=== PATIENT | male | born 1980 ===

== ENCOUNTER 2024-04-23 12:16 | Inpatient (IN) | payer BC, MEDICAID, OTHER ==
[2024-04-23] MEDS ORDERED: ACETAMINOPHEN TAB 325 MG TAB PO PRN (23:57)
[2024-04-23] MEDS ORDERED: MAG HYDROX/AL HYDROX/SIMETH 355 ML BOTTLE PO PRN (23:57)
[2024-04-23] MEDS ORDERED: haloperidoL 5 MG TAB PO PRN (23:57)
[2024-04-23] MEDS ORDERED: LORazepam 1 MG TAB PO PRN (23:57)
[2024-04-23] MEDS ORDERED: HALOPERIDOL LACTATE 5 MG/ML 1 ML VIAL IM PRN (23:57)
[2024-04-23] MEDS ORDERED: IBUPROFEN 600 MG TAB PO PRN (23:57)
[2024-04-23] MEDS ORDERED: traZODone HCL 50 MG TAB PO PRN (23:57)
[2024-04-23] MEDS ORDERED: MAGNESIUM HYDROXIDE 2,400 MG/30 ML CUP PO PRN (23:57)
[2024-04-23] MEDS ORDERED: OLANZapine 10 MG VIAL IM PRN (23:57)
[2024-04-24] MEDS: ASPIRIN 81 MG PO SCH (08:12)
[2024-04-24] MEDS: NICOTINE 14MG/24HR PATCH TRANSDERM SCH (08:14)
[2024-04-24] MEDS: METOPROLOL SUCCINATE (ER) 25 MG TAB.ER.24H PO SCH (08:14)
[2024-04-24] MEDS: ATORVASTATIN 80 MG TAB PO SCH (08:14)
[2024-04-24] MEDS: CLOPIDOGREL 75 MG TAB PO SCH (08:14)
--- NOTE | 2024-04-24 12:14 | P.HP ---
Psychiatric H&P - . H&P Date: 04/24/24 History & Physical: Allergies Allergy/AdvReac Type Severity Reaction Status Date / Time No Known Allergies Allergy Verified 04/23/24 23:54 Vital Signs Temp 97.6 F 04/24/24 00:23 Pulse 71 04/24/24 00:23 Resp 16 04/24/24 00:23 BP 132/87 04/24/24 00:23 Pulse Ox 98 04/24/24 00:23 FiO2 Intake & Output 04/23/24 04/24/24 04/24/24 18:59 06:59 18:59 Weight 96.162 kg 04/24/24 12:04 Mr. 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, 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 Behavior: Patient is calmly seated without any agitated behavior. Speech: Patient's speech is fluent and pressured. Mood/Affect: Mood is i euphoric with expansiveness Suicidality/Homicidality: Patient denies having any suicidal or homicidal ideation intent or plan. Perceptions: Patient denies any visual hallucinations and denies any auditory hallucinations Though content/process: There is evidence of delusional thought content and thought processes Memory and concentration: AOX3, grossly intact for the purposes of this session Judgment and insight: Impaired and impaired Assessment Bipolar disorder Interpersonal family issues and conflicts Plan: Patient is admitted under involuntary status to MHU for stabilization of psychiatric symptoms and safety. -Medications : Patient is in denial and refuses any medication intervention -Ativan and Haldol PRN for agitation/aggression -Internal Medicine consult to perform medical evaluation and physical. -SW on board for discharge planning. Encourage patient to participate in groups to work on coping skills. patient's case will have to first go to the court before any medications could be initiated except for the as needed medications Encouraged the patient to participate on the johnson activities and continue supportive care Derrick Dorsey MD Active Medications Generic Name Dose Route Start Last Admin Trade Name Freq PRN Reason Stop Dose Admin Acetaminophen 650 mg 04/23/24 23:57 Acetaminophen Tab 325 Mg Tab PO Q4HR PRN Mild Pain (Scale 1 to 3) Al Hydroxide/Mg Hydroxide 30 ml 04/23/24 23:57 Mag Hydrox/Al Hydrox/Simeth 355 Ml Bottle PO Q4HR PRN GI Upset Aspirin 81 mg 04/24/24 09:00 04/24/24 08:12 Aspirin 81 Mg PO 81 mg DAILY ARIELLA Administration Atorvastatin Calcium 80 mg 04/24/24 09:00 04/24/24 08:14 Atorvastatin 80 Mg Tab PO 80 mg DAILY ARIELLA Administration Clopidogrel Bisulfate 75 mg 04/24/24 09:00 04/24/24 08:14 Clopidogrel 75 Mg Tab PO 75 mg DAILY ARIELLA Administration Haloperidol 5 mg 04/23/24 23:57 Haloperidol 5 Mg Tab PO Q6HR PRN Agitation Haloperidol Lactate 5 mg 04/23/24 23:57 Haloperidol Lactate 5 Mg/Ml 1 Ml Vial IM Q6HR PRN Severe Agitation Ibuprofen 600 mg 04/23/24 23:57 Ibuprofen 600 Mg Tab PO Q6HR PRN Moderate Pain (Scale 4 to 6) Lisinopril 2.5 mg 04/24/24 09:00 04/24/24 08:14 Lisinopril 2.5 Mg Tab PO 2.5 mg DAILY ARIELLA Administration Lorazepam 1 mg 04/23/24 23:57 Lorazepam 1 Mg Tab PO Q6HR PRN Anxiety Magnesium Hydroxide 2,400 mg 04/23/24 23:57 Magnesium Hydroxide 2,400 Mg/30 Ml Cup PO DAILY PRN Constipation Metoprolol Succinate 25 mg 04/24/24 09:00 04/24/24 08:14 Metoprolol Succinate (Er) 25 Mg Tab.Er.24h PO 25 mg DAILY ARIELLA Administration Trazodone HCl 50 mg 04/23/24 23:57 Trazodone Hcl 50 Mg Tab PO HS PRN Insomnia
--- NOTE | 2024-04-25 02:39 | P.CONS ---
History of Present Illness - Reason for Consult Consult date: 04/25/24 - History of Present Illness The patient is a 44-year-old male with an unknown PMH who was sent in from [facility] where the patient had been admitted for strange behavior. The patient could not give much information and why he was brought to the emergency room. He denied any physical complaints at the time of interview. He does report recreational marijuana use. Denied experiencing chest discomfort, shortness of breath, fever, chills, cough, nausea, vomiting, abdominal pain, diarrhea. Review of systems: Pertinent positives and negatives as discussed in HPI, a complete review of systems was performed and all other systems are negative. Physical examination: General: non toxic, no distress, appears at stated age, obese Derm: no unusual rashes/lesions, no unusual ecchymoses, warm, dry Head: atraumatic, normocephalic, symmetric Eyes: EOMI, no lid lag, anicteric sclera ENT: Nose and ears atraumatic, no thrush, no pharyngeal erythema Neck: trachea midline, supple Mouth: no lip lesion, mucus membranes moist Cardiovascular: S1S2 reg, no murmur, no edema Lungs: CTA bilateral, no rhonchi, no rales , no accessory muscle use Abdominal: soft, nontender to palpation, no guarding Ext: no gross muscle atrophy, no contractures, Neuro: No gross focal neuro deficits noted Psych: Alert, oriented, appropriate affect Assessment: Marijuana abuse Psychosis Plan: Advised on the importance of cessation of marijuana use Defer management of psychosis to primary psychiatry service Thank you for allowing us to participate in the care of this patient. We will follow peripherally. Do not hesitate to contact us with questions. Someone can be reached from the [facility] hospitalist group at all hours of the day at [phone]. Past Medical History Additional Past Medical History / Comment(s): Heart stent History of Any Multi-Drug Resistant Organisms: None Reported Past Surgical History: Heart Catheterization With Stent Past Anesthesia/Blood Transfusion Reactions: Unable to Obtain Date of Last Stent Placement:: Unknown Past Psychological History: Schizophrenia Smoking Status: Former smoker Past Alcohol Use History: Occasional Past Drug Use History: Marijuana Medications and Allergies Allergies Allergy/AdvReac Type Severity Reaction Status Date / Time No Known Allergies Allergy Verified 04/23/24 23:54
--- NOTE | 2024-04-25 08:34 | P.PN ---
Subjective Progress Note Date: 04/25/24 Principal diagnosis: Assessment Bipolar disorder Interpersonal family issues and conflicts Patient Name: Marquis Mann Sr Date of : 84 Patient Status: Inpatient Attending Provider: Rihc Singletary Date: 04/25/24 Initialization Date: 04/24/24 12:04 Subjective data: The patient was seen chart was reviewed and case discussed with the nursing staff Patient was near the phone in the hallway and agreed to talk to this magnetic tape typewriter operator Patient again started to rambebeto about issues where he reports that his ex- was in [place] and that she was trying to get him in trouble He then reports that he only came to the hospital to get some x-rays and MRI done and that he was searching for his son He states that the doctors would not listen to his issues and problems and put him in the hospital He states that he does not have any barron in the ambulance officer doing anything either Patient remains projective argumentative Patient's insight into his problem remains poor Mental Status Exam: General Appearance: Patient appears to be stated age is alert, directable, and cooperative. Behavior: Patient is calmly seated without any agitated behavior. Speech: Patient's speech is fluent and pressured. Mood/Affect: Mood is i euphoric with expansiveness Suicidality/Homicidality: Patient denies having any suicidal or homicidal ideation intent or plan. Perceptions: Patient denies any visual hallucinations and denies any auditory hallucinations Though content/process: There is evidence of delusional thought content and thought processes Memory and concentration: AOX3, grossly intact for the purposes of this session Judgment and insight: Impaired and impaired Assessment Bipolar disorder Interpersonal family issues and conflicts Plan: Patient is admitted under involuntary status to MHU for stabilization of psych iatric symptoms and safety. -Medications : Patient is in denial and refuses any medication intervention -Ativan and Haldol PRN for agitation/aggression -Internal Medicine consult to perform medical evaluation and physical. -SW on board for discharge planning. Encourage patient to participate in groups to work on coping skills. patient's case will have to first go to the court before any medications could be initiated except for the as needed medications Encouraged the patient to participate on the johnson activities and continue supportive care Derrick Dorsey MD Active Medications Generic Name Dose Route Start Last Admin Trade Name Freq PRN Reason Stop Dose Admin Acetaminophen 650 mg 04/23/24 23:57 Acetaminophen Tab 325 Mg Tab PO Q4HR PRN Mild Pain (Scale 1 to 3) Al Hydroxide/Mg Hydroxide 30 ml 04/23/24 23:57 Mag Hydrox/Al Hydrox/Simeth 355 Ml Bottle PO Q4HR PRN GI Upset Aspirin 81 mg 04/24/24 09:00 04/25/24 08:06 Aspirin 81 Mg PO 81 mg DAILY ARIELLA Administration Atorvastatin Calcium 80 mg 04/24/24 09:00 04/25/24 08:06 Atorvastatin 80 Mg Tab PO 80 mg DAILY ARIELLA Administration Clopidogrel Bisulfate 75 mg 04/24/24 09:00 04/25/24 08:06 Clopidogrel 75 Mg Tab PO 75 mg DAILY ARIELLA Administration Haloperidol 5 mg 04/23/24 23:57 Haloperidol 5 Mg Tab PO Q6HR PRN Agitation Haloperidol Lactate 5 mg 04/23/24 23:57 Haloperidol Lactate 5 Mg/Ml 1 Ml Vial IM Q6HR PRN Severe Agitation Ibuprofen 600 mg 04/23/24 23:57 Ibuprofen 600 Mg Tab PO Q6HR PRN Moderate Pain (Scale 4 to 6) Lisinopril 2.5 mg 04/24/24 09:00 04/25/24 08:06 Lisinopril 2.5 Mg Tab PO 2.5 mg DAILY ARIELLA Administration Lorazepam 1 mg 04/23/24 23:57 Lorazepam 1 Mg Tab PO Q6HR PRN Anxiety Magnesium Hydroxide 2,400 mg 04/23/24 23:57 Magnesium Hydroxide 2,400 Mg/30 Ml Cup PO DAILY PRN Constipation Metoprolol Succinate 25 mg 04/24/24 09:00 04/25/24 08:06 Metoprolol Succinate (Er) 25 Mg Tab.Er.24h PO 25 mg DAILY ARIELLA Administration Trazodone HCl 50 mg 04/23/24 23:57 Trazodone Hcl 50 Mg Tab PO HS PRN Insomnia Objective - Vital Signs Vital signs: Vital Signs Temp 96.6 F L 04/25/24 08:08 Pulse 76 04/25/24 08:08 Resp 16 04/25/24 08:08 BP 115/80 04/25/24 08:08 Pulse Ox 98 04/24/24 00:23 FiO2
--- NOTE | 2024-04-26 11:39 | P.PN ---
Progress Note - Text Progress Note Date: 04/26/24 Interval History: Patient was seen in his room, and was directable and agreeable to speak with karan spear at the bedside. At this time, patient states that he is frustrated with this admission. Goes into a flight of ideas about how his kids have it out for him, and have had his admitted two times this week. endorsing paranoia, loose associations. Patient states the first admission, he was immediately discharged. He speaks about how his children and ex are ganging up on him, and petitioning him, just to mess with him. He states that he is sleeping well, and that his appetite is good. At this time patient denies any suicidal or homicidal ideations, intent or plan. Patient denies any auditory, visual hallucinations and denies any paranoia or delusions. Patient states he does not need psych medications. He has been compliant with his heart medications. Mental Status Exam: General Appearance: Patient appears to be have longer hair, stated age is alert, directable, and cooperative. Behavior: Patient is calmly seated without any agitated behavior. Demanding and paranoid. Speech: Patient's speech is fluent and nonpressured. flight of ideas Mood/Affect: Mood is frustrated, affect is congruent and visibly upset. Suicidality/Homicidality: Patient denies having any suicidal or homicidal ideation intent or plan Perceptions: Patient denies any visual hallucinations and denies any auditory hallucinations Though content/process: flight of ideas, paranoid, disorganized. Memory and concentration: AOX3, grossly intact for the purposes of this session Judgment and insight: poor/impulsive. Assessment psychosis unspecified Interpersonal family issues and conflicts cannabis use disorder Plan: -Patient continues to meet criteria for inpatient psychiatric admission for symptom stabilization and safety. Patient has not signed adult voluntary form or medication consent and was placed in patient's chart. -Medications: add Risperdal 0.5mg bid for psychosis. -When necessary Ativan and Haldol for agitation/aggression. -NRT - non smoker -SW on board for discharge planning. Encouraged the patient to participate in milieu. Currently awaiting deferral with tax associate attorney and court date.
[2024-04-26] MEDS: risperiDONE 0.5 MG TAB PO SCH (14:23)
--- NOTE | 2024-04-27 12:14 | P.PN ---
Progress Note - Text Progress Note Date: 04/27/24 Interval History: Patient was seen in group, and was directable and agreeable to speak with senior mortgage underwriter in the hallway. Patient states he is doing better today, as he was able to make some phone calls to get outside business taken care of. He continues to state that he does not think he needs medication or treatment, however, he did defer with his oracle hyperion consultant, and has agreed to take the medications. Front Desk Team Member went over the medications that he will be on, and explained how they worked, patient agreeable . He does still ramble about his children and ex "having it in for him". It appears to be calmer and his mood and also affect, also is less preoccupied with the circumstance that led him to the hospital, he appears to be more agreeable to be in the hospital and take medications after speaking with his oracle hyperion consultant and he deferred today. He states that he is sleeping well, and that his appetite is good. At this time patient denies any suicidal or homicidal ideations, intent or plan. Patient denies any auditory, visual hallucinations and denies any paranoia or delusions. Patient has been compliant with medications, and does not report any side effects. Patient offered no complaints. Mental Status Exam: General Appearance: Patient appears to be have longer hair, stated age is alert, directable, and cooperative. Behavior: Patient is calmly seated without any agitated behavior. Speech: Patient's speech is fluent and nonpressured. flight of ideas, improving mildly Mood/Affect: Mood is improving, affect is congruent and mildly improving Suicidality/Homicidality: Patient denies having any suicidal or homicidal ideation intent or plan Perceptions: Patient denies any visual hallucinations and denies any auditory hallucinations Though content/process: flight of ideas, paranoid, improving mildly Memory and concentration: AOX3, grossly intact for the purposes of this session Judgment and insight: poor/impulsive.improving mildly Assessment psychosis unspecified Interpersonal family issues and conflicts cannabis use disorder Plan: -Patient continues to meet criteria for inpatient psychiatric admission for symptom stabilization and safety. Patient deferred with oracle hyperion consultant on 04/27 -Medications: add [place] 300mg po daily for mood stabilization, Risperdal 0.5mg bid for psychosis. -When necessary Ativan and Haldol for agitation/aggression. -NRT - non smoker -SW on board for discharge planning. Encouraged the patient to participate in milieu. Patient deferred with oracle hyperion consultant, hopeful discharge back home .
[2024-04-27] MEDS: LITHIUM CARBONATE 300 MG CAP PO SCH (12:15)
[2024-04-27] MEDS: ATORVASTATIN 80 MG TAB PO SCH (20:38)
[2024-04-27] MEDS: METOPROLOL SUCCINATE (ER) 25 MG TAB.ER.24H PO SCH (20:38)
[2024-04-28 06:56] VITALS: RESP 16; TEMP 97.7
--- NOTE | 2024-04-28 11:49 | P.PN ---
Progress Note - Text Progress Note Date: 04/28/24 Interval History: Patient was seen in group, and was directable and agreeable to speak with senior copywriter in the office. Patient states he is doing good today. He appears to be calmer today. He is concerned about how he will get home, since he lives two hours away. He appears to be more agreeable to be in the hospital and take medications today. He states that he is sleeping well, and that his appetite is good. he is going to groups and participating. At this time patient denies any suicidal or homicidal ideations, intent or plan. Patient denies any auditory, visual hallucinations and denies any paranoia or delusions. Patient has been compliant with medications, and does not report any side effects. Patient offered no complaints. Mental Status Exam: General Appearance: Patient appears to be have longer hair, stated age is alert, directable, and cooperative. Behavior: Patient is calmly seated without any agitated behavior. Speech: Patient's speech is fluent and nonpressured. flight of ideas, improving mildly Mood/Affect: Mood is good, affect is congruent and mildly improving Suicidality/Homicidality: Patient denies having any suicidal or homicidal ideation intent or plan Perceptions: Patient denies any visual hallucinations and denies any auditory hallucinations Though content/process: improving mildly Memory and concentration: AOX3, grossly intact for the purposes of this session Judgment and insight: improving Assessment psychosis unspecified Interpersonal family issues and conflicts cannabis use disorder Plan: -Patient continues to meet criteria for inpatient psychiatric admission for symptom stabilization and safety. Patient deferred with energy attorney on 04/27 -Medications: [place] 300mg po daily for mood stabilization, Risperdal 0.5mg bid for psychosis. -When necessary Ativan and Haldol for agitation/aggression. -NRT - non smoker -SW on board for discharge planning. Encouraged the patient to participate in milieu. Patient deferred with energy attorney, hopeful for discharge back home tomorrow if patient is doing well.
[2024-04-29 09:16] VITALS: BP 127/79; PULSE 82
--- NOTE | 2024-04-29 10:23 | P.DS ---
Providers Date of admission: 04/24/24 00:37 Expected date of discharge: 04/29/24 Attending physician: Rich Singletary MD Consults: 04/23/24 23:57 Consult Physician Routine Consulting Provider: Oralia Schumacher Consult Reason/Comments: For H & P for Medical follow Up Do you want consulting provider notified?: Yes Primary care physician: Angel Garcia MD - Discharge Diagnosis(es) (1) Unspecified psychosis Current Visit: Yes Status: Acute Priority: High (2) Interpersonal problem Current Visit: Yes Status: Acute Priority: High (3) Cannabis use disorder Current Visit: Yes Status: Acute Priority: Medium Hospital Course: Admission HPI: Admission note was completed by Dr Dorsey "Mr. 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, 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 Patient ended up signing a deferral with the assistant district attorney and agreeing to treatment. Patient was initially hostile, agitated however with time and treatment he eventually got along well with other patients on the unit and followed unit protocol. Patient was compliant with the medications and denied any side effects throughout hospital course. Patient was started on lithium 300 mg daily for mood stabilization, Risperdal 0.5 mg twice daily for psychosis. Patient spoke of his stressors and engaged in therapy both group and individual. Patient was also seen by medical team for history and physical exam. Throughout the course of the hospitalization patient gradually improved with regards to mood, anxiety, psychosis, paranoia and preoccupations, sleep and returned back to their baseline level of functioning. On the day of discharge patient denied any suicidal or homicidal ideations intent or plan denied any auditory or visual hallucinations. Patient endorsed wanting to live for his health and family. The patient denied any access to guns or weapons. Patient denied any paranoia and did not endorse any delusions. Patient does have a significant history of substance abuse and was counseled on abstaining from all substances including alcohol and marijuana. Patient elected to do outpatient substance use treatment program through [facility]. Patient was also counseled on the medications and need for regular compliance and was encouraged to follow-up with their outpatient appointment for mental health and also for primary care. Prior to discharge a family meeting will be arranged by clinical social work therapist to answer any questions and ensure safety upon discharge. Mental status exam: General Appearance: Patient appears to be have long hair, stated age is alert, pleasant, and cooperative. Patient is in no acute distress and has improved hygiene and grooming Behavior: Patient is calmly seated without any agitated behavior. Speech: Patient's speech is fluent and nonpressured. Mood/Affect: Patient reports their mood is "good", affect is congruent and euthymic. Suicidality/Homicidality: Patient denies having any suicidal or homicidal ideation intent or plan. Perceptions: Patient denies any auditory or visual hallucinations. Though content/process: There is no evidence of any delusional thought content and thought process is linear and goal-directed. More future oriented Memory and concentration: AOX3, grossly intact for the purposes of this session. Can spell "WORLD" backwards correctly. Judgment and insight: improved with guarded prognosis Impression: psychosis unspecified Interpersonal family issues and conflicts cannabis use disorder Plan: -Continue with discharge today as patient has improved and stabilized psychiatrically and is not currently an imminent threat to himself and/or others. Patient will remain at chronically elevated risk for harm to self and/or others due to his impulsivity and substance abuse. -Continue medications: [place] 300 mg daily for mood stabilization, Risperdal 0.5 mg twice daily for psychosis. -Patient was counseled on the need for medication compliance and appropriate follow-up at mental health and also primary care for medical issues. Patient verbalized understanding and agreed. -Social work to arrange for and conduct family meeting to ensure safety upon discharge and answer any questions/concerns. Social work also to arrange for patients follow up appointments for psychiatric care along with follow up with primary care provider. -Patient counseled on abstaining from recreational drugs and marijuana and alcohol. Was informed/educated on the adverse effects on their physical and mental health. Patient verbally agreed and understood. -Patient was instructed to return to the hospital or seek immediate medical care if their psychiatric or medical symptoms do worsen or reoccur. Allergies Allergy/AdvReac Type Severity Reaction Status Date / Time No Known Allergies Allergy Verified 04/23/24 23:54 Vital Signs Temp 97.7 F 04/29/24 06:44 Pulse 82 04/29/24 09:16 Resp 16 04/29/24 06:44 BP 127/79 04/29/24 09:16 Pulse Ox 98 04/29/24 06:44 FiO2 Patient Condition at Discharge: Stable Plan - Discharge Summary New Discharge Prescriptions: New Aspirin 81 mg PO DAILY 30 Days #30 tab Atorvastatin [Lipitor] 80 mg PO DAILY@2100 30 Days #30 tab [place] Carbonate 300 mg PO DAILY 30 Days #30 cap Clopidogrel [Plavix] 75 mg PO DAILY 30 Days #30 tab risperiDONE [RisperDAL] 0.5 mg PO BID 30 Days #60 tab Metoprolol Succinate (ER) [Toprol XL] 25 mg PO DAILY 30 Days #30 tab lisinopriL [Zestril] 2.5 mg PO DAILY 30 Days #30 tab Ibuprofen [Motrin] 600 mg PO Q6HR PRN tab PRN Reason: Moderate Pain (Scale 4 To 6) Follow up Appointment(s)/Referral(s): [facility], [facility] [Other] - 1 Week (05/03 @ 10:15 [facility] ) Patient Instructions/Handouts: Bipolar Disorder (DC) Activity/Diet/Wound Care/Special Instructions: Avoid the use of street drugs and alcohol. Take all medications as prescribed. When you are in need of refills on your medications, please contact your medical provider and/or outpatient psychiatrist/provider to have this done. Please go to your scheduled outpatient appointment for aftercare treatment. If symptoms return or become worse, call the crisis line at and/or go to the nearest emergency room for evaluation. National Suicide Hotline 988 Discharge Disposition: HOME SELF-CARE
== END 2024-04-29 12:40 | disposition home or self-care (01) | DRG 885 ==
LOC: 3MHU 04-24 00:37
PROVIDERS: ADMIT Psychiatry & Neurology Psychiatry; ATTEND Psychiatry & Neurology Psychiatry
DX: F29 Unspecified psychosis not due to a substance or known physiological condition (principal); F32.2 Major depressive disorder, single episode, severe without psychotic features; F41.9 Anxiety disorder, unspecified; Z87.891 Personal history of nicotine dependence; Z95.5 Presence of coronary angioplasty implant and graft; F12.10 Cannabis abuse, uncomplicated; F20.9 Schizophrenia, unspecified; Z71.51 Drug abuse counseling and surveillance of drug abuser; Z63.9 Problem related to primary support group, unspecified; K59.00 Constipation, unspecified